=== PATIENT | female | born 1970 | race Hispanic/Latino ===

== ENCOUNTER 2024-03-21 10:17 | Emergency (ER) | payer BC ==
[~2024-03-21] VITALS: Ht 162.6 cm; Wt 63.5 kg
[2024-03-21 11:03] LABS: APPEARANCE,URINE CLOUDY (CLEAR); BILIRUBIN,URINE NEGATIVE (NEGATIVE); COLOR,URINE YELLOW (YELLOW); GLUCOSE, URINE (UA) NEGATIVE (NEGATIVE); KETONES,URINE NEGATIVE (NEGATIVE); LEUKOCYTE ESTERASE ,URINE NEGATIVE Leu/uL (NEGATIVE); NITRATE,URINE NEGATIVE (NEGATIVE); OCCULT BLOOD,URINE NEGATIVE (NEGATIVE); PROTEIN,URINE 10 mg/dL (NEGATIVE); UROBILINOGEN,URINE 0.2 mg/dL (0.2-1.0)
[2024-03-21 11:23] LABS: ADD UA MICROSCOPIC YES
[2024-03-21 11:24] LABS: BACTERIA,URINE RARE /HPF (None Seen); MUCUS,URINE RARE LPF (None Seen); SQUAMOUS EPITHELIAL CELL,UR MANY /HPF (0-2)
[2024-03-21] MEDS: diazePAM 5 MG TAB PO ONE (11:45)
[2024-03-21] MEDS: dexaMETHasone SOD PHOSPHATE 4 MG/ML 1ML VIAL IM ONE (11:45)
[2024-03-21] MEDS: ketOROlac 30MG VIAL (30MG/ML) IM ONE (11:45)
[2024-03-21] MEDS ORDERED: IBUP-2070 PO (13:20)
[2024-03-21] MEDS ORDERED: CYCL10TA16 PO (13:20)
[2024-03-21 13:51] VITALS: BP 132/79; PULSE 89; RESP 20; TEMP 98.6; O2SAT 99
== END 2024-03-21 13:51 | disposition home or self-care (01) ==
LOC: EDH 10:17
DX: M16.11 Unilateral primary osteoarthritis, right hip (principal); I10 Essential (primary) hypertension; M79.7 Fibromyalgia; M06.9 Rheumatoid arthritis, unspecified; Z90.49 Acquired absence of other specified parts of digestive tract; Z90.710 Acquired absence of both cervix and uterus
CPT/HCPCS: 99284; 81001; 81025; 73502; 72170; 96372 ×2; J1100; J1885